=== PATIENT | male | born 1965 | race Caucasian/White ===

== ENCOUNTER 2018-01-07 22:11 | Emergency (ER) | payer BC ==
[~2018-01-07] VITALS: Ht 182.9 cm; Wt 100.0 kg
[2018-01-07] MEDS ORDERED: NORCO 325 MG-51 TA1 PO (23:58)
[2018-01-08 00:20] VITALS: BP 121/83
== END 2018-01-08 00:20 | disposition home or self-care (01) ==
LOC: ED 22:11
DX: S01.21XA Laceration without foreign body of nose, initial encounter (principal); S80.212A Abrasion, left knee, initial encounter; S70.312A Abrasion, left thigh, initial encounter; S80.812A Abrasion, left lower leg, initial encounter; S80.811A Abrasion, right lower leg, initial encounter; S40.212A Abrasion of left shoulder, initial encounter; R07.89 Other chest pain; M25.512 Pain in left shoulder; S00.81XA Abrasion of other part of head, initial encounter; V86.59XA Driver of other special all-terrain or other off-road motor vehicle injured in nontraffic accident, initial encounter; Z23 Encounter for immunization
CPT/HCPCS: 90715; A4550; A4565; J1885

== ENCOUNTER 2018-01-12 08:33 | Emergency (ER) | payer BC ==
[~2018-01-12 08:33] MED LIST: NORCO 325 MG-51 TA1 PO
[2018-01-12 08:46] VITALS: BP 177/103
== END 2018-01-12 08:45 | disposition home or self-care (01) ==
LOC: ED 08:33
DX: Z48.02 Encounter for removal of sutures (principal)

== ENCOUNTER → 2020-09-24 | Outpatient (CLI) | payer BC ==
[2019-06-24 09:38] VITALS: BP 131/94
[~2020-09-24] MED LIST changes: +IBU800 M1 PO
[2020-09-24 09:53] LABS: EOS # 0.3 (0.04-0.40); HEMATOCRIT 47.7 % (42.0-52.0); LYMPH# 2.8 (1.50-4.00); MEAN CELL VOLUME 95 fl (78-100); MEAN CORPUSCULAR HEMOGLOBIN 30 pg (27-31); MEAN CORPUSCULAR HGB CONC 31 g/dL (33-37); MONO # 0.7 (0.20-0.80); NEU # 4.5 (1.40-6.50); PLATELET COUNT 258 K/mm3 (130-400); RED BLOOD COUNT 5.02 M/mm3 (4.20-5.60); RED CELL DISTRIBUTION WIDTH 13.3 % (11.5-14.5); WHITE BLOOD COUNT 8.3 K/mm3 (4.8-10.8)
[2020-09-24 10:07] LABS: ALBUMIN 4.4 g/dL (3.5-5.0); POTASSIUM 4.3 mmol/L (3.5-5.1)
[2020-09-24 10:10] LABS: TOTAL PROTEIN 7.4 g/dL (6.4-8.3)
[2020-09-24 10:12] LABS: TOTAL BILIRUBIN 0.4 mg/dL (0.2-1.2)
== END ==
LOC: LAB 09:27
PROVIDERS: Physician Assistant
DX: Z12.5 Encounter for screening for malignant neoplasm of prostate (principal); I10 Essential (primary) hypertension; E78.5 Hyperlipidemia, unspecified; M15.9 Polyosteoarthritis, unspecified; Z72.0 Tobacco use

== ENCOUNTER → 2021-10-01 | Outpatient (CLI) | payer BC ==
[2021-10-01 08:24] LABS: BASO # 0.05 K/mm3 (0.02-0.10); EOS # 0.31 K/mm3 (0.04-0.40); EOS % 3.5 % (0.0-4.0); HEMATOCRIT 48.5 % (42.0-52.0); HEMOGLOBIN 15.2 g/dL (13.5-18.0); LYMPH# 2.69 K/mm3 (1.50-4.00); MEAN CELL VOLUME 95 fl (78-100); MEAN CORPUSCULAR HEMOGLOBIN 30 pg (27-31); MEAN CORPUSCULAR HGB CONC 31 g/dL (33-37); MEAN PLATELET VOLUME 10.2 fl (7.4-10.4); MONO # 0.71 K/mm3 (0.20-0.80); NEU # 4.99 K/mm3 (1.40-6.50); PLATELET COUNT 239 K/mm3 (130-400); RED CELL DISTRIBUTION WIDTH 12.8 % (11.5-14.5); WHITE BLOOD COUNT 8.8 K/mm3 (4.8-10.8)
[2021-10-01 08:27] LABS: CALCIUM 9.3 mg/dL (8.3-10.5)
[2021-10-01 08:29] LABS: TOTAL PROTEIN 6.7 g/dL (6.4-8.3)
[2021-10-01 08:31] LABS: TOTAL BILIRUBIN 0.4 mg/dL (0.2-1.2)
== END ==
LOC: LAB 08:07
PROVIDERS: Physician Assistant
DX: Z00.00 Encounter for general adult medical examination without abnormal findings (principal); Z12.5 Encounter for screening for malignant neoplasm of prostate; I10 Essential (primary) hypertension; E78.5 Hyperlipidemia, unspecified

== ENCOUNTER → 2022-12-13 | Outpatient (CLI) | payer BC | LOC: RAD 10:14 | DX: M19.011 Primary osteoarthritis, right shoulder (principal) ==

== ENCOUNTER → 2023-01-10 | Outpatient (CLI) | payer BC ==
[2023-01-10 07:43] LABS: BASO # 0.03 K/mm3 (0.02-0.10); EOS # 0.19 K/mm3 (0.04-0.40); EOS % 2.3 % (0.0-4.0); HEMATOCRIT 45.8 % (42.0-52.0); HEMOGLOBIN 14.6 g/dL (13.5-18.0); LYMPH# 3.13 K/mm3 (1.50-4.00); MEAN CELL VOLUME 95 fl (78-100); MEAN CORPUSCULAR HEMOGLOBIN 30 pg (27-31); MEAN CORPUSCULAR HGB CONC 32 g/dL (33-37); MEAN PLATELET VOLUME 10.7 fl (7.4-10.4); MONO # 0.68 K/mm3 (0.20-0.80); NEU # 4.07 K/mm3 (1.40-6.50); PLATELET COUNT 233 K/mm3 (130-400); RED CELL DISTRIBUTION WIDTH 12.9 % (11.5-14.5); WHITE BLOOD COUNT 8.1 K/mm3 (4.8-10.8)
[2023-01-10 07:48] LABS: ALBUMIN 4.4 g/dL (3.5-5.0); POTASSIUM 4.3 mmol/L (3.5-5.1)
[2023-01-10 07:49] LABS: CALCIUM 9.6 mg/dL (8.3-10.5)
[2023-01-10 07:51] LABS: TOTAL PROTEIN 6.8 g/dL (6.4-8.3)
[2023-01-10 07:52] LABS: TOTAL BILIRUBIN 0.3 mg/dL (0.2-1.2)
== END ==
LOC: LAB 07:03
PROVIDERS: Physician Assistant
DX: Z00.00 Encounter for general adult medical examination without abnormal findings (principal); Z13.1 Encounter for screening for diabetes mellitus; Z12.5 Encounter for screening for malignant neoplasm of prostate; Z13.29 Encounter for screening for other suspected endocrine disorder; Z13.220 Encounter for screening for lipoid disorders; I10 Essential (primary) hypertension; M19.90 Unspecified osteoarthritis, unspecified site; K90.9 Intestinal malabsorption, unspecified; R51.9 Headache, unspecified; Z72.0 Tobacco use; Z83.3 Family history of diabetes mellitus

== ENCOUNTER 2024-07-24 07:55 | Outpatient (RCR) | payer BC | END 2024-08-19 11:14 | disposition home or self-care (01) | LOC: OT 07:55 | DX: R20.2 Paresthesia of skin (principal); R29.898 Other symptoms and signs involving the musculoskeletal system; M25.511 Pain in right shoulder; G89.29 Other chronic pain ==

== ENCOUNTER 2024-10-07 07:57 | Emergency (ER) | payer BC ==
[~2024-10-07] VITALS: Ht 185.4 cm; Wt 100.1 kg
[2024-10-07] MEDS ORDERED: VITAMIN D3125 MC4 PO (08:14)
[2024-10-07] MEDS ORDERED: PROPRANOLOL HY120 MG PO (08:14)
[2024-10-07] MEDS ORDERED: VITAMIN B12500 MC2 PO (08:15)
[2024-10-07 08:49] LABS: BASO # 0.04 K/mm3 (0.02-0.10); EOS # 0.27 K/mm3 (0.04-0.40); EOS % 2.8 % (0.0-4.0); HEMATOCRIT 47.8 % (42.0-52.0); LYMPH# 2.76 K/mm3 (1.50-4.00); MEAN CELL VOLUME 93 fl (78-100); MEAN CORPUSCULAR HEMOGLOBIN 29 pg (27-31); MEAN CORPUSCULAR HGB CONC 31 g/dL (33-37); MEAN PLATELET VOLUME 10.3 fl (7.4-10.4); MONO # 0.74 K/mm3 (0.20-0.80); PLATELET COUNT 217 K/mm3 (130-400); RED BLOOD COUNT 5.13 M/mm3 (4.20-5.60); WHITE BLOOD COUNT 9.6 K/mm3 (4.8-10.8)
[2024-10-07 08:59] LABS: ALBUMIN 4.1 g/dL (3.5-5.0)
[2024-10-07 09:01] LABS: CALCIUM 9.4 mg/dL (8.3-10.5)
[2024-10-07 09:02] LABS: TOTAL PROTEIN 6.6 g/dL (6.4-8.3)
[2024-10-07 09:04] LABS: TOTAL BILIRUBIN 0.4 mg/dL (0.2-1.2)
[2024-10-07 09:10] LABS: URINE APPEARANCE CLEAR (CLEAR); URINE BILIRUBIN NEGATIVE (NEGATIVE); URINE BLOOD NEGATIVE (NEGATIVE); URINE COLOR YELLOW (YELLOW); URINE GLUCOSE NEGATIVE (NEGATIVE); URINE KETONE NEGATIVE (NEGATIVE); URINE LEUKOCYTE ESTERASE NEGATIVE (NEGATIVE); URINE MUCUS PRESENT (NOT PRESENT); URINE NITRATE NEGATIVE (NEGATIVE); URINE PROTEIN(semi-quant) NEGATIVE (NEGATIVE); URINE WBC 0-1 /hpf (0-3)
[2024-10-07 10:09] VITALS: BP 134/94
== END 2024-10-07 10:11 | disposition home or self-care (01) ==
LOC: ED 07:57
PROVIDERS: Physician Assistant
DX: M94.0 Chondrocostal junction syndrome [Tietze] (principal)

== ENCOUNTER → 2024-11-08 | Outpatient (CLI) | payer BC ==
[~2024-11-08] MED LIST changes: +PROPRANOLOL HY120 MG PO; +VITAMIN B12500 MC2 PO; +VITAMIN D3125 MC4 PO
== END ==
LOC: RAD 07:47
DX: M75.111 Incomplete rotator cuff tear or rupture of right shoulder, not specified as traumatic (principal); M24.811 Other specific joint derangements of right shoulder, not elsewhere classified